=== PATIENT | male | born 1985 | race Two or more races ===

== ENCOUNTER 2022-09-14 06:29 | Emergency (ER) | payer OTHER ==
[2022-09-14 06:47] VITALS: BP 136/100; PULSE 70; RESP 18; TEMP 97.6; BMI 28.1
[2022-09-14] MEDS ORDERED: CEPHALEXIN MONOHYDRATE 500 MG CAPSULE (UD) PO ONE (09:14)
[2022-09-14] MEDS ORDERED: CEPHALEXIN MONOHYDRATE 500 MG CAPSULE (UD) ONE (09:29)
[2022-09-14 09:47] LABS: EPITHELIAL CELLS FEW /hpf
== END 2022-09-14 09:40 | disposition home or self-care (01) ==
LOC: FER 06:29
DX: N39.0 Urinary tract infection, site not specified (principal)
CPT/HCPCS: 36415; 81003; 81015; 82962; 87086; 87491; 87591; 99283-25

== ENCOUNTER 2025-03-06 06:40 | Day surgery (SDC) | payer OTHER ==
[2025-02-28 11:57] VITALS: BMI 28.1
[2025-03-06 11:46] VITALS: RESP 18
[2025-03-06] MEDS ORDERED: MIDAZOLAM HCL 2 MG/2 ML SINGLE DOSE VIAL ONE (13:04)
[2025-03-06 14:46] VITALS: BP 119/75; PULSE 63; TEMP 97.5
== END 2025-03-06 14:45 | disposition home or self-care (01) ==
LOC: JASU-SURG 06:40
PROVIDERS: ATTEND Urology
PROC: 0TF4XZZ Fragmentation in Left Kidney Pelvis, External Approach (ICD-10-PCS; principal; 2025-03-06 13:12)
DX: N20.0 Calculus of kidney (principal)